=== PATIENT | female | born 1975 | race African-American/Black ===

== ENCOUNTER 2017-11-28 20:38 | Emergency (ER) | payer MEDICAID ==
[~2017-11-28] VITALS: Ht 157.5 cm; Wt 107.5 kg
[2017-11-28 20:48] VITALS: BP 113/56
--- NOTE | 2017-11-28 21:00 | NUR ---
PT AMBULATED TO BED 11, URINE SAMPLE COLLECTED.
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
[2017-11-28] MEDS ORDERED: ASPIRIN 325 MG TAB PO ONE (21:30)
[2017-11-28] MEDS ORDERED: MORPHINE SULFATE 4 MG/ML SYR IVP ONE ×2 (21:30→23:25)
--- NOTE | 2017-11-28 21:30 | NUR ---
DR. ALCANTARA AT BEDSIDE EVALUATIING PT
[2017-11-28 21:58] LABS: BASOPHILS # (AUTO) 0.1 K/uL (0.00-0.22); BASOPHILS % (AUTO) 0.8 % (0.0-2.0); EOSINOPHILS # (AUTO) 0.1 K/uL (0-0.4); EOSINOPHILS % (AUTO) 1.3 % (0.0-4.0); HEMATOCRIT 34.4 % (36-48); LYMPHOCYTES % (AUTO) 34.4 % (20.5-51.1); MEAN CORPUSCULAR HEMOGLOBIN 24 pg (27-31); MEAN CORPUSCULAR HGB CONC 32 g/dL (33-37); MEAN CORPUSCULAR VOLUME 74.2 fL (80-94); MONOCYTES # (AUTO) 0.7 K/uL (0.8-1.0); MONOCYTES % (AUTO) 8.2 % (1.7-9.3); NEUTROPHILS # (AUTO) 4.9 K/uL (1.8-7.7); NEUTROPHILS % (AUTO) 55.3 % (42.2-75.2); PLATELET COUNT (AUTO) 250 K/uL (140-450); RED BLOOD CELL COUNT(AUTO) 4.63 MIL/uL (4.20-5.40); RED CELL DISTRIBUTION WIDTH 16.1 % (11.6-13.7); WHITE BLOOD COUNT (AUTO) 8.8 K/uL (4.8-10.8)
[2017-11-28 22:12] LABS: ANION GAP 14.3 (8-16); CREATININE 0.7 mg/dL (0.6-1.3); POTASSIUM 3.3 mmol/L (3.5-5.1)
[2017-11-28] MEDS ORDERED: ONDANSETRON 4 MG/2 ML VIAL IVP ONE ×2 (22:15→23:40)
[2017-11-28 22:19] LABS: ALBUMIN 3.2 g/dL (3.4-5.0); TOTAL BILIRUBIN 0.1 mg/dL (0.0-1.0)
[2017-11-28 22:24] LABS: CREATINE KINASE MB 0.6 ng/mL (0-3.6)
--- NOTE | 2017-11-28 23:00 | NUR ---
PT SLEEPING, RESPIRATIONS EVEN AND UNLABORED. VSS, NO ACUTE DISTRESS AT THIS TIME. WILL CONTINUE TO MONITOR.
[2017-11-29 00:30] VITALS: BP 126/96
--- NOTE | 2017-11-29 00:30 | NUR ---
Patient discharged with v/s stable. Written and verbal after care instructions given and explained. Patient alert, oriented and verbalized understanding of instructions. Ambulatory with steady gait. All questions addressed prior to discharge. ID band removed. Patient advised to follow up with PMD. Rx of ASA 81 MG given. Patient educated on indication of medication including possible reaction and side effects. Opportunity to ask questions provided and answered.
== END 2017-11-29 00:30 | disposition home or self-care (01) ==
LOC: MED 20:38
DX: R07.89 Other chest pain (principal); R06.02 Shortness of breath; R50.9 Fever, unspecified; Z85.42 Personal history of malignant neoplasm of other parts of uterus; Z88.0 Allergy status to penicillin; Z88.6 Allergy status to analgesic agent; Z88.2 Allergy status to sulfonamides; Z90.89 Acquired absence of other organs; Z90.710 Acquired absence of both cervix and uterus
CPT/HCPCS: 36415; 71045; 80053; 81002; 81025; 82550; 82553; 83690; 84484; 85025; 85379; 93005; 96374; 96375; 96376; 99285; J2270; J2405; Q0092

== ENCOUNTER 2017-12-06 20:13 | Emergency (ER) | payer MEDICAID ==
[~2017-12-06] VITALS: Ht 154.9 cm; Wt 104.3 kg
[2017-12-06 20:22] VITALS: BP 113/73
[2017-12-06 21:08] LABS: RED BLOOD CELL COUNT(AUTO) 4.51 MIL/uL (4.20-5.40); WHITE BLOOD COUNT (AUTO) 8.3 K/uL (4.8-10.8)
[2017-12-06 21:09] LABS: BASOPHILS % (AUTO) 1.3 % (0.0-2.0); EOSINOPHILS % (AUTO) 1.5 % (0.0-4.0); HEMATOCRIT 34.5 % (36-48); HEMOGLOBIN 10.9 g/dL (12.0-16.0); LYMPHOCYTES # (AUTO) 3.3 K/uL (2.5-16.5); LYMPHOCYTES % (AUTO) 40.1 % (20.5-51.1); MEAN CORPUSCULAR HEMOGLOBIN 24 pg (27-31); MEAN CORPUSCULAR HGB CONC 32 g/dL (33-37); MEAN CORPUSCULAR VOLUME 76.6 fL (80-94); MONOCYTES % (AUTO) 8.7 % (1.7-9.3); NEUTROPHILS # (AUTO) 4.1 K/uL (1.8-7.7); NEUTROPHILS % (AUTO) 48.4 % (42.2-75.2); PLATELET COUNT (AUTO) 323 K/uL (140-450); RED CELL DISTRIBUTION WIDTH 15.2 % (11.6-13.7)
[2017-12-06 21:10] LABS: BASOPHILS # (AUTO) 0.1 K/uL (0.00-0.22); EOSINOPHILS # (AUTO) 0.1 K/uL (0-0.4); MONOCYTES # (AUTO) 0.7 K/uL (0.8-1.0)
[2017-12-06] MEDS: LORazepam 2 MG/ML VIAL IVP ONE (21:20)
[2017-12-06] MEDS: fentaNYL 0.05 MG/ML VIAL IVP ONE (21:21)
[2017-12-06] MEDS: ONDANSETRON 4 MG/2 ML VIAL IVP ONE (21:22)
[2017-12-06 21:23] LABS: ALBUMIN 3.4 g/dL (3.4-5.0); CARBON DIOXIDE 24.7 mmol/L (21-32); CREATININE 0.7 mg/dL (0.6-1.3); TOTAL BILIRUBIN 0.1 mg/dL (0.0-1.0)
[2017-12-06] MEDS: NACL 0.9% 1,000 ML IV ONE (21:25)
[2017-12-06 21:29] LABS: POTASSIUM 2.7 mmol/L (3.5-5.1)
[2017-12-06] MEDS: POTASSIUM CHLORIDE 10 MEQ TABER PO ONE (21:46)
[2017-12-07] MEDS: fentaNYL 0.05 MG/ML VIAL IVP ONE (00:41)
[2017-12-07] MEDS: ONDANSETRON 4 MG/2 ML VIAL IVP ONE (00:43)
[2017-12-07 00:45] VITALS: BP 119/62
== END 2017-12-07 00:45 | disposition home or self-care (01) ==
LOC: MED 20:13
DX: M94.0 Chondrocostal junction syndrome [Tietze] (principal); E87.6 Hypokalemia; R06.4 Hyperventilation; Z85.42 Personal history of malignant neoplasm of other parts of uterus; Z90.89 Acquired absence of other organs; Z90.710 Acquired absence of both cervix and uterus; Z88.0 Allergy status to penicillin; Z88.6 Allergy status to analgesic agent
CPT/HCPCS: 36415; 71250; 76705; 80053; 83690; 84484; 85025; 85379; 87040; 93005; 96361; 96374; 96375; 96376; 99285; J2060; J2405; J3010; J7030; Q0092

== ENCOUNTER 2018-03-12 12:38 | Emergency (ER) | payer OTHER ==
[~2018-03-12] VITALS: Ht 165.1 cm; Wt 109.0 kg
[2018-03-12 12:50] VITALS: BP 100/43
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
[2018-03-12] MEDS ORDERED: ACETAMINOPHEN EXTRA STRENGTH 500 MG TAB PO ONE (13:45)
[2018-03-12] MEDS ORDERED: traMADol 50 MG TAB PO ONE (13:45)
[2018-03-12] MEDS ORDERED: ONDANSETRON 4 MG ODT PO ONE (14:45)
[2018-03-12] MEDS ORDERED: MORPHINE SULFATE 2 MG/ML SYR IM ONE (16:15)
[2018-03-12 16:30] VITALS: BP 108/62
--- NOTE | 2018-03-12 16:30 | NUR ---
Patient discharged with v/s stable. Written and verbal after care instructions given and explained. Patient alert, oriented and verbalized understanding of instructions. Ambulatory with steady gait. All questions addressed prior to discharge. ID band removed. Patient advised to follow up with PMD. Rx of TRAMADOL 50MG given. Patient educated on indication of medication including possible reaction and side effects. Opportunity to ask questions provided and answered.
== END 2018-03-12 16:30 | disposition home or self-care (01) ==
LOC: MED 12:38
DX: S13.9XXA Sprain of joints and ligaments of unspecified parts of neck, initial encounter (principal); S39.012A Strain of muscle, fascia and tendon of lower back, initial encounter; I10 Essential (primary) hypertension; Z88.0 Allergy status to penicillin; Z88.6 Allergy status to analgesic agent; Z91.013 Allergy to seafood; V43.52XA Car driver injured in collision with other type car in traffic accident, initial encounter; Y93.19 Activity, other involving water and watercraft; Y92.411 Interstate highway as the place of occurrence of the external cause; Y99.8 Other external cause status
CPT/HCPCS: 70450; 71046; 72040; 72110; 81002; 81025; 96372; 99284; J2270; Q0162

== ENCOUNTER 2018-07-23 11:17 | Emergency (ER) | payer OTHER ==
[~2018-07-23] VITALS: Ht 157.5 cm; Wt 106.1 kg
[2018-07-23 11:40] VITALS: BP 116/67
--- NOTE | 2018-07-23 11:49 | NUR ---
PT PLACED INTO A W/C FOR COMFORT AND SENT TO LOBBY TO WAIT FOR AVAILABLE BED.
--- NOTE | 2018-07-23 12:14 | NUR ---
Patient ambulated to bed 8. RN evaluating patient at bedside.
--- NOTE | 2018-07-23 12:20 | NUR ---
C/O RIGHT SIDE LOWER ABDOMINAL PAIN X 1 WEEK. PT IS 2 WEEKS POST OP GASTRIC SLEEVE PROCEDURE. NO BOWEL MOVEMENT IN ALMOST 1 WEEK PER PT. DENIES N/V/D/FEVER. BOWEL SOUNDS ACTIVE X4 QUADRANTS, ABDOMEN IS SOFT AND TENDER TO TOUCH. SKIN IS WARM/DRY; AAOX4 WITH EVEN AND STEADY GAIT; LUNGS CLEAR BL; HR EVEN AND REGULAR;VSS; PATIENT POSITIONED FOR COMFORT; HOB ELEVATED; BEDRAILS UP X1; BED DOWN. ER MD MADE AWARE OF PT STATUS.
--- NOTE | 2018-07-23 12:35 | NUR ---
URINE COLLECTED AND SENT TO LAB
[2018-07-23 12:43] LABS: BASOPHILS # (AUTO) 0.1 K/uL (0.00-0.22); BASOPHILS % (AUTO) 0.5 % (0.0-2.0); EOSINOPHILS # (AUTO) 0.1 K/uL (0-0.4); EOSINOPHILS % (AUTO) 1.3 % (0.0-4.0); HEMATOCRIT 34.6 % (36-48); HEMOGLOBIN 11.1 g/dL (12.0-16.0); LYMPHOCYTES # (AUTO) 2.1 K/uL (2.5-16.5); LYMPHOCYTES % (AUTO) 20.7 % (20.5-51.1); MEAN CORPUSCULAR HEMOGLOBIN 24 pg (27-31); MEAN CORPUSCULAR HGB CONC 32 g/dL (33-37); MEAN CORPUSCULAR VOLUME 76.5 fL (80-94); MONOCYTES # (AUTO) 0.9 K/uL (0.8-1.0); MONOCYTES % (AUTO) 8.5 % (1.7-9.3); NEUTROPHILS # (AUTO) 7.2 K/uL (1.8-7.7); PLATELET COUNT (AUTO) 438 K/uL (140-450); RED BLOOD CELL COUNT(AUTO) 4.53 MIL/uL (4.20-5.40); RED CELL DISTRIBUTION WIDTH 15.4 % (11.6-13.7); WHITE BLOOD COUNT (AUTO) 10.4 K/uL (4.8-10.8)
--- NOTE | 2018-07-23 12:43 | NUR ---
Dr. Jones evaluating patient at bedside.
[2018-07-23 12:49] LABS: ANION GAP 12.4 (8-16); CARBON DIOXIDE 26.1 mmol/L (21-32); CREATININE 0.8 mg/dL (0.6-1.3); POTASSIUM 3.5 mmol/L (3.5-5.1)
[2018-07-23 12:53] LABS: BILIRUBIN,URINE 1+ (NEGATIVE); BLOOD, URINE NEGATIVE (NEGATIVE); COLOR,URINE YELLOW (YELLOW); LEUKOCYTE ESTERASE ,URINE NEGATIVE (NEGATIVE); NITRITE, URINE NEGATIVE (NEGATIVE); PH,URINE 5.5 (5.0-9.0); UGLUCOSE NEGATIVE (NEGATIVE)
[2018-07-23 12:55] LABS: ALBUMIN 3.3 g/dL (3.4-5.0); TOTAL BILIRUBIN 0.3 mg/dL (0.0-1.0)
[2018-07-23] MEDS ORDERED: NACL 0.9% 1,000 ML IV SCH (13:00)
[2018-07-23] MEDS ORDERED: MORPHINE SULFATE 4 MG/ML SYR IM ONE ×2 (13:05→19:15)
[2018-07-23] MEDS ORDERED: ONDANSETRON 4 MG/2 ML VIAL IVP ONE (13:05)
[2018-07-23] MEDS ORDERED: FAMOTIDINE 20 MG/2 ML VIAL IVP ONE (13:05)
[2018-07-23] MEDS ORDERED: LACTULOSE 20 GM/30 ML UDC PO ONE (13:05)
[2018-07-23 13:10] LABS: RBC,URINE 0-5 /HPF (0-5); WBC,URINE 0-5 /HPF (0-5)
[2018-07-23 13:11] LABS: APPEARANCE,URINE SLIGHTLY HAZY (CLEAR)
[2018-07-23 14:15] LABS: AMYLASE 53 U/L (25-115); LIPASE 178 U/L (73-393)
[2018-07-23] MEDS ORDERED: MORPHINE SULFATE 4 MG/ML SYR IV ONE (15:50)
--- NOTE | 2018-07-23 16:05 | NUR ---
PT LEFT TO CT
--- NOTE | 2018-07-23 17:05 | NUR ---
Patient returned from CT scan. RN re-evaluating patient at bedside.
--- NOTE | 2018-07-23 18:46 | NUR ---
Dr. Jones evaluating patient at bedside.
[2018-07-23 19:31] VITALS: BP 119/81
--- NOTE | 2018-07-23 19:32 | NUR ---
Patient discharged with v/s stable. Written and verbal after care instructions given and explained. Patient alert, oriented and verbalized understanding of instructions. Ambulatory with steady gait. All questions addressed prior to discharge. ID band removed. Patient advised to follow up with PMD. Rx of REGLAN, TRAMADOL, COLACE given. Patient educated on indication of medication including possible reaction and side effects. Opportunity to ask questions provided and answered.
== END 2018-07-23 19:31 | disposition home or self-care (01) ==
LOC: MED 11:17
DX: K58.1 Irritable bowel syndrome with constipation (principal); I10 Essential (primary) hypertension; Z98.84 Bariatric surgery status; Z88.0 Allergy status to penicillin; Z88.6 Allergy status to analgesic agent; Z88.8 Allergy status to other drugs, medicaments and biological substances
CPT/HCPCS: 36415; 74176; 80053; 81001; 81025; 82150; 83690; 85025; 96372; 96374; 96375; 96376; 99284; J2270; J2405; J3490; J7030

== ENCOUNTER 2018-07-31 18:46 | Emergency (ER) | payer OTHER ==
[~2018-07-31] VITALS: Ht 177.8 cm; Wt 104.0 kg
[2018-07-31 18:59] VITALS: BP 128/67
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
[2018-07-31] MEDS ORDERED: MORPHINE SULFATE 4 MG/ML SYR IM ONE (20:15)
[2018-07-31] MEDS ORDERED: MORPHINE SULFATE 4 MG/ML SYR IVP ONE (20:20)
[2018-07-31] MEDS ORDERED: ONDANSETRON 4 MG/2 ML VIAL IVP ONE (20:20)
--- NOTE | 2018-07-31 20:47 | NUR ---
Patient being evaluated by Dr. Alejandra at bedside.
[2018-07-31] MEDS ORDERED: CLINDAMYCIN 900 MG in DEXTROSE 5% 100 ML IV ONE (21:00)
[2018-07-31] MEDS ORDERED: CLINDAMYCIN 900 MG/6 ML VIAL IV ONE (21:12)
--- NOTE | 2018-07-31 21:20 | NUR ---
PER PT, " I FEEL COLD AND NAUSEA". SYMPTOMS STARTED 10 MINS ANTIBIOTIC ADMINISTRATION. ERMD MADE AWARE. NO NEW ORDERS AT THIS TIME. WILL CONTINUE TO MONITOR.
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
[2018-07-31] MEDS ORDERED: diphenhydrAMINE 50 MG/ML VIAL IVP ONE (22:00)
--- NOTE | 2018-07-31 22:31 | NUR ---
Patient discharged with v/s stable. Written and verbal after care instructions given and explained. Patient alert, oriented and verbalized understanding of instructions. Ambulatory with steady gait. All questions addressed prior to discharge. ID band removed. Patient advised to follow up with PMD. Rx of Septra, Tramadol,Zofran given. Patient educated on indication of medication including possible reaction and side effects. Opportunity to ask questions provided and answered.
== END 2018-07-31 22:31 | disposition home or self-care (01) ==
LOC: MED 18:46
DX: K91.872 Postprocedural seroma of a digestive system organ or structure following a digestive system procedure (principal); Z88.0 Allergy status to penicillin; Z88.8 Allergy status to other drugs, medicaments and biological substances; Y83.9 Surgical procedure, unspecified as the cause of abnormal reaction of the patient, or of later complication, without mention of misadventure at the time of the procedure
CPT/HCPCS: 96365; 96375; 99283; J1200; J2270; J2405; J3490

== ENCOUNTER 2020-04-23 21:47 | Emergency (ER) | payer OTHER ==
[~2020-04-23] VITALS: Ht 157.5 cm; Wt 86.2 kg
[2020-04-23 22:09] VITALS: BP 114/82
--- NOTE | 2020-04-23 22:16 | NUR ---
TO LOBBY A/W BED AMBULATORY
--- NOTE | 2020-04-23 22:40 | NUR ---
SEEN AND EXAMINED BY LALO WITH ORDERS, CARRIED OUT
--- NOTE | 2020-04-23 23:10 | NUR ---
RESULTS BACK AND NOTED BY ERMD AND FOR D/C
[2020-04-23] MEDS ORDERED: AZITHROMYCIN 250 MG TAB PO ONE (23:40)
[2020-04-24 00:15] VITALS: BP 114/82
--- NOTE | 2020-04-24 00:15 | NUR ---
Patient discharged with v/s stable. Written and verbal after care instructions given and explained. Patient alert, oriented and verbalized understanding of instructions. Ambulatory with steady gait. All questions addressed prior to discharge. ID band removed. Patient advised to follow up with PMD. Rx of NAPROSYN,GUAIATUSSIN, AUGMENTIN given. Patient educated on indication of medication including possible reaction and side effects. Opportunity to ask questions provided and answered.
== END 2020-04-24 00:15 | disposition home or self-care (01) ==
LOC: MED 21:47
DX: R07.89 Other chest pain (principal); Z20.828 Contact with and (suspected) exposure to other viral communicable diseases; J32.9 Chronic sinusitis, unspecified; Z88.0 Allergy status to penicillin; Z88.8 Allergy status to other drugs, medicaments and biological substances
CPT/HCPCS: 71045; 93005; 99285; U0003

== ENCOUNTER 2020-05-31 23:46 | Emergency (ER) | payer OTHER ==
[~2020-05-31] VITALS: Ht 157.5 cm; Wt 95.3 kg
[2020-05-31 23:51] VITALS: BP 126/78
--- NOTE | 2020-06-01 00:03 | NUR ---
PT AMBULATED WITH STEADY GAIT TO BED 2.
--- NOTE | 2020-06-01 00:10 | NUR ---
PATIENT PRESENTS TO ED WITH C/O POSALLERGIC RXN. SWELLING AND ITCHING STARTED SHORTLY AFTER EATING SHRIMP. DENIES N/V/D; SKIN IS PINK/WARM/DRY; AAOX4 WITH EVEN AND STEADY GAIT; LUNGS CLEAR BL; HR EVEN AND REGULAR; PT DENIES ANY FEVER, CP, SOB, OR COUGH AT THIS TIME; ER MD MADE AWARE OF PT STATUS.
[2020-06-01] MEDS ORDERED: WATER STERILE 10 ML MC ONE (00:20)
[2020-06-01] MEDS ORDERED: methylPREDNISolone SS 125 MG/2 ML VIAL ONE (00:20)
[2020-06-01] MEDS: diphenhydrAMINE 50 MG/ML VIAL IM ONE (00:47)
[2020-06-01] MEDS: methylPREDNISolone SS 125 MG in WATER STERILE 2 ML IM ONE (00:48)
[2020-06-01] MEDS: EPINEPHrine 1:1000 - 1 MG/ML AMP SUBQ ONE (00:50)
[2020-06-01 01:10] VITALS: BP 126/78
--- NOTE | 2020-06-01 01:10 | NUR ---
Patient discharged with v/s stable. Written and verbal after care instructions given and explained. Patient verbalized understanding. Ambulatory with steady gait. All questions addressed prior to discharge. Advised to follow up with PMD. IS FEELING MUCH BETTER SINCE MEDICATIONS
== END 2020-06-01 01:10 | disposition home or self-care (01) ==
LOC: MED 23:46
DX: T78.03XA Anaphylactic reaction due to other fish, initial encounter (principal); L27.2 Dermatitis due to ingested food; X58.XXXA Exposure to other specified factors, initial encounter
CPT/HCPCS: 96372; 99291; J0171; J1200; J2930